=== PATIENT | male | born 1960 | race Caucasian/White ===

== ENCOUNTER → 2019-10-08 | Outpatient (CLI) | payer MEDICAID ==
[~2019-10-08] MED LIST: ACET-1600 PO; ACET-458 PO; ATOR40TA78 PO
[2019-10-08 11:54] LABS: BASOPHILS # (AUTO) 0.04 x10^3/uL (0-0.1); BASOPHILS % (AUTO) 1 % (0-1); EOSINOPHILS # (AUTO) 0.24 x10^3/uL (0-0.4); EOSINOPHILS % (AUTO) 3 % (1-7); LYMPHOCYTES # (AUTO) 2.02 x10^3/uL (1-3.4); LYMPHOCYTES % (AUTO) 28 % (22-44); MD NO; MEAN CORPUSCULAR HEMOGLOBIN 31.7 pg (27.5-34.5); MEAN CORPUSCULAR HGB CONC 33.7 g/dL (33.2-36.2); MEAN CORPUSCULAR VOLUME 94.1 fL (81-97); MEAN PLATELET VOLUME 7.6 fL (7.4-10.4); MONOCYTES # (AUTO) 0.44 x10^3/uL (0.2-0.8); MONOCYTES % (AUTO) 6 % (2-9); NEUTROPHILS # (AUTO) 4.58 x10^3/uL (1.8-6.8); NEUTROPHILS % (AUTO) 63 % (42-75); PLATELET COUNT 325 x10^3/uL (130-400); RED BLOOD COUNT 4.44 x10^6/uL (4.38-5.82); RED CELL DISTRIBUTION WIDTH 13.7 % (9.4-14.8)
[2019-10-08 12:05] LABS: INTERNATIONAL NORMALIZED RATIO 1.03 (0.93-1.1); PROTHROMBIN TIME 10.6 Seconds (9.6-11.5)
[2019-10-08 12:08] LABS: ANION GAP 8 mmol/L (5-15); CALCIUM 9.5 mg/dL (8.5-10.1); CHLORIDE 108 mmol/L (98-107)
[2019-10-08 12:13] LABS: ALANINE AMINOTRANSFERASE 29 U/L (12-78); ALKALINE PHOSPHATASE 57 U/L (45-117); BILIRUBIN,TOTAL 0.6 mg/dL (0.2-1.0); CREATININE 0.93 mg/dL (0.7-1.3); TOTAL PROTEIN 7.5 g/dL (6.4-8.2)
== END | disposition home or self-care (01) ==
LOC: STAR 10:44
PROVIDERS: ATTEND Orthopaedic Surgery
DX: Z01.818 Encounter for other preprocedural examination (principal); M16.11 Unilateral primary osteoarthritis, right hip; M25.551 Pain in right hip
CPT/HCPCS: 36415; 80053; 83036; 85025; 85610; 85730; 87081; 93005

== ENCOUNTER → 2019-10-15 | Outpatient (CLI) | payer MEDICAID | END | disposition home or self-care (01) | LOC: STAR 09:58 | PROVIDERS: ATTEND Anesthesiology | DX: Z01.812 Encounter for preprocedural laboratory examination (principal); Z20.828 Contact with and (suspected) exposure to other viral communicable diseases | CPT/HCPCS: 36415; 87635 ==

== ENCOUNTER 2019-10-20 06:33 | Day surgery (SDC) | payer MEDICAID ==
[~2019-10-20] VITALS: Ht 188 cm; Wt 102.1 kg
[2019-10-20] MEDS ORDERED: GABAPENTIN 300 MG CAPSULE PO STA (06:49)
[2019-10-20] MEDS ORDERED: ACETAMINOPHEN 500 MG TABLET PO STA (06:49)
[2019-10-20] MEDS ORDERED: LACTATED RINGERS 1,000 ML IV SCH (06:50)
[2019-10-20] MEDS ORDERED: MIDAZOLAM 1 MG/ML, 2ML ONE (06:54)
[2019-10-20] MEDS ORDERED: FENTANYL PF 250 MCG/5ML ONE (06:54)
[2019-10-20] MEDS ORDERED: TRANEXAMIC ACID 100 MG/ML, 10ML ONE ×2 (06:55→06:56)
[2019-10-20] MEDS ORDERED: KETOROLAC 60 MG/2 ML ONE (06:55)
[2019-10-20] MEDS ORDERED: ROPIvacaine/PF 0.5%, 20 ML ONE (06:55)
[2019-10-20] MEDS ORDERED: ROPIvacaine/PF 0.5%, 30 ML ONE (06:55)
[2019-10-20] MEDS ORDERED: PROPOFOL 10 MG/ML, 20ML ONE (06:55)
[2019-10-20] MEDS ORDERED: SODIUM CHLORIDE 0.9% 50 ML ONE (06:56)
[2019-10-20] MEDS ORDERED: VANCOMYCIN 1,000 MG ONE (06:56)
[2019-10-20] MEDS ORDERED: EPINEPHRINE 1 MG/ML, 1ML ONE (06:56)
[2019-10-20] MEDS ORDERED: CHLORHEXIDINE 15 ML UDC MM ONE (07:00)
[2019-10-20] MEDS ORDERED: ROCURONIUM 10MG/ML,5ML ONE (07:04)
[2019-10-20] MEDS ORDERED: ONDANSETRON 2MG/ML, 2ML ONE (07:05)
[2019-10-20] MEDS ORDERED: DEXAMETHASONE 4 MG/ML, 1ML ONE ×2 (07:05)
[2019-10-20] MEDS ORDERED: CEFAZOLIN 1,000 MG ONE ×2 (07:05)
[2019-10-20] MEDS ORDERED: NS + 20MEQ KCL 1,000 ML IV SCH (07:07)
[2019-10-20] MEDS ORDERED: MEPERIDINE/PF 25MG/0.5ML IVPush PRN (07:30)
[2019-10-20] MEDS ORDERED: BISACODYL 10 MG SUPP PR PRN (07:30)
[2019-10-20] MEDS ORDERED: ACETAMINOPHEN 325 MG TABLET PO PRN (07:30)
[2019-10-20] MEDS ORDERED: ONDANSETRON 2MG/ML, 2ML IV PRN (07:30)
[2019-10-20] MEDS ORDERED: ONDANSETRON 2MG/ML, 2ML IVPush PRN (07:30)
[2019-10-20] MEDS ORDERED: MAGNESIUM HYDROXIDE 8%, 30ML UDC PO PRN (07:30)
[2019-10-20] MEDS ORDERED: ZOLPIDEM 5MG TABLET PO PRN (07:30)
[2019-10-20] MEDS ORDERED: HYDROcodone/APAP 5/325 TABLET PO PRN (07:30)
[2019-10-20] MEDS ORDERED: ONDANSETRON 4 MG TABLET PO PRN (07:30)
[2019-10-20] MEDS ORDERED: SENNA/DOCUSATE TABLET PO PRN (07:30)
[2019-10-20] MEDS ORDERED: DIPHENHYDRAMINE 50 MG/ML, 1ML IVPush PRN (07:30)
[2019-10-20] MEDS ORDERED: DIPHENHYDRAMINE 50 MG CAPSULE PO PRN (07:30)
[2019-10-20] MEDS ORDERED: OXYcodone IR 5MG TABLET PO PRN (07:30)
[2019-10-20] MEDS ORDERED: ACETAMINOPHEN 650 MG/20.3 ML UDC PO PRN (07:30)
[2019-10-20] MEDS ORDERED: PROMETHAZINE 25 MG/ML, 1ML IVPush PRN (07:30)
[2019-10-20] MEDS ORDERED: LABETALOL 5MG/ML, 20ML IV PRN (07:30)
[2019-10-20] MEDS ORDERED: hydrALAzine 20 MG/ML, 1ML IV PRN (07:30)
[2019-10-20] MEDS ORDERED: OXYcodone 5 MG/5 ML ORAL.SOL UDC PO PRN (07:30)
[2019-10-20] MEDS ORDERED: FENTANYL PF 100 MCG/2ML ONE (08:43)
[2019-10-20] MEDS: FENTANYL PF 100 MCG/2ML IV PRN ×2 (08:45→09:00)
[2019-10-20] MEDS: DIAZEPAM 5 MG/ML, 2ML IVPush PRN ×2 (08:45→09:00)
[2019-10-20] MEDS ORDERED: DIAZEPAM 5 MG/ML, 2ML ONE (08:46)
[2019-10-20] MEDS ORDERED: OXYcodone 5 MG/5 ML ORAL.SOL UDC ONE (08:56)
[2019-10-20] MEDS ORDERED: DOCUSATE 100 MG CAPSULE PO SCH (09:00)
[2019-10-20] MEDS ORDERED: LABETALOL 5MG/ML, 20ML ONE (09:06)
[2019-10-20] MEDS ORDERED: HYDROmorphone 1 MG/ML, 1ML INJ ONE (09:07)
[2019-10-20] MEDS: HYDROmorphone 1 MG/ML, 1ML INJ IVPush PRN ×2 (09:10→09:40)
[2019-10-20] MEDS ORDERED: hydrALAzine 20 MG/ML, 1ML ONE (09:24)
[2019-10-20] MEDS ORDERED: METHOCARBAMOL 1,000 MG in DEXTROSE 5% 100 ML IV ONE (10:00)
[2019-10-20 12:48] VITALS: BP 123/64
[2019-10-20] MEDS ORDERED: CEFAZOLIN PMX 2GM/50ML 50 ML IVPB SCH (15:00)
[2019-10-20] MEDS ORDERED: OXYC5TAB3 PO (15:36)
[2019-10-20] MEDS ORDERED: TRAM-47 PO (15:39)
[2019-10-20] MEDS ORDERED: MELO7.5T31 PO ×2 (15:40→15:41)
[2019-10-20] MEDS ORDERED: ASPIRIN 81 MG TABLET EC PO SCH (18:00)
[2019-10-20] MEDS ORDERED: ATORVASTATIN 40 MG TABLET PO SCH (21:00)
[2019-10-21] MEDS ORDERED: DEXAMETHASONE 4 MG/ML, 1ML IVPush SCH (06:00)
== END 2019-10-20 16:09 | disposition home or self-care (01) ==
LOC: OUT 06:33 → 4NE 10:54 → 4EST 12:52 → OUT 16:09
PROVIDERS: ATTEND Orthopaedic Surgery
DX: T81.89XA Other complications of procedures, not elsewhere classified, initial encounter (principal); S73.101A Unspecified sprain of right hip, initial encounter; M16.11 Unilateral primary osteoarthritis, right hip; M25.551 Pain in right hip; I10 Essential (primary) hypertension; E78.5 Hyperlipidemia, unspecified; F17.210 Nicotine dependence, cigarettes, uncomplicated; X58.XXXA Exposure to other specified factors, initial encounter; Y93.89 Activity, other specified; Y92.89 Other specified places as the place of occurrence of the external cause; Y99.8 Other external cause status; Y82.8 Other medical devices associated with adverse incidents; Z98.890 Other specified postprocedural states; Z79.899 Other long term (current) drug therapy
CPT/HCPCS: 27132; 73501; 76000; 97110; 97161; 97165; C1713; C1776; J0171; J0690; J1100; J1170; J1885; J2250; J2405; J2704; J2795; J2800; J3010; J3360; J3370; J7120; G0378

== ENCOUNTER 2020-10-20 08:36 | Outpatient (CLI) | payer MEDICAID ==
[~2020-10-20 08:36] MED LIST changes: +MELO7.5T31 PO; +OXYC5TAB98 PO; +TRAM-47 PO
[2020-10-25] MEDS ORDERED: ASPI81TA45 PO (15:00)
[2020-10-25] MEDS ORDERED: OXYC1TAB12 PO (15:00)
[2020-10-25] MEDS ORDERED: LORA-446 PO (15:00)
[2020-10-25] MEDS ORDERED: CLOP75TA52 PO (15:00)
[2020-10-25] MEDS ORDERED: Toradol PO (15:00)
[2020-10-25] MEDS ORDERED: ATOR-2 PO (15:00)
[2020-10-25] MEDS ORDERED: HYDR-2214 PO (15:01)
== END 2020-10-20 23:59 | disposition home or self-care (01) ==
LOC: STAR 08:36
PROVIDERS: ATTEND Thoracic Surgery (Cardiothoracic Vascular Surgery)
DX: Z20.822 Contact with and (suspected) exposure to COVID-19 (principal)
CPT/HCPCS: U0003; U0005

== ENCOUNTER 2020-10-26 04:16 | Inpatient (IN) | payer MEDICAID ==
[2020-10-25 14:41] LABS: BASOPHILS % (AUTO) 2 % (0-1); EOSINOPHILS % (AUTO) 4 % (1-7); LYMPHOCYTES % (AUTO) 37 % (22-44); MEAN CORPUSCULAR HEMOGLOBIN 31.2 pg (27.5-34.5); MEAN CORPUSCULAR HGB CONC 33.6 g/dL (33.2-36.2); MEAN PLATELET VOLUME 7.9 fL (7.4-10.4); MONOCYTES % (AUTO) 7 % (2-9); NEUTROPHILS % (AUTO) 50 % (42-75); PLATELET COUNT 275 x10^3/uL (130-400); RED BLOOD COUNT 4.63 x10^6/uL (4.38-5.82); RED CELL DISTRIBUTION WIDTH 13.5 % (9.4-14.8)
[2020-10-25 14:52] LABS: ALBUMIN 4.2 g/dL (3.4-5.0); ANION GAP 5 mmol/L (5-15); CALCIUM 9.3 mg/dL (8.5-10.1); CHLORIDE 109 mmol/L (98-107)
[2020-10-25 14:55] LABS: ALANINE AMINOTRANSFERASE 32 U/L (12-78); ALKALINE PHOSPHATASE 52 U/L (45-117); BILIRUBIN,TOTAL 0.7 mg/dL (0.2-1.0); TOTAL PROTEIN 7.8 g/dL (6.4-8.2)
[2020-10-25 15:21] LABS: INTERNATIONAL NORMALIZED RATIO 1.03 (0.93-1.1)
[2020-10-25 15:21] LABS: MICROSCOPIC NOT IND
[~2020-10-26] VITALS: Ht 188 cm; Wt 106.8 kg
[~2020-10-26 04:16] MED LIST changes: +ASPI81TA45 PO; +ATOR-2 PO; +CLOP75TA52 PO; +HYDR-2214 PO; +LORA-446 PO; +OXYC1TAB12 PO; +Toradol PO
[2020-10-26] MEDS ORDERED: INSULIN LISPRO 100 UNITS/ML, PEN SQ-INSULIN ONE (04:30)
[2020-10-26] MEDS ORDERED: CHLORHEXIDINE 15 ML UDC MM PRN (04:30)
[2020-10-26 04:45] VITALS: BP_SYST 113; BP_SYST 127; BP_DIAS 76; BP_DIAS 78
[2020-10-26] MEDS ORDERED: METOPROLOL TARTRATE 25 MG TAB PO ONE (05:00)
[2020-10-26] MEDS ORDERED: DO NOT GIVE MC SCH (05:00)
[2020-10-26] MEDS ORDERED: DO NOT GIVE XX SCH (05:00)
[2020-10-26] MEDS ORDERED: MUPIROCIN OINT 2%, 15GM NAS SCH (06:00)
[2020-10-26] MEDS ORDERED: LORazepam 0.5MG TABLET PO ONE (06:00)
[2020-10-26] MEDS ORDERED: ALBUMIN HUMAN 5% 500 ML ONE (06:33)
[2020-10-26] MEDS ORDERED: PHENYLEPHRINE 10 MG/ML ONE (06:48)
[2020-10-26] MEDS ORDERED: PAPAVERINE 30 MG/ML, 2ML ONE (06:48)
[2020-10-26] MEDS ORDERED: MIDAZOLAM 10MG/2 ML ONE (06:48)
[2020-10-26] MEDS ORDERED: EPINEPHRINE 1 MG/ML, 1ML ONE (06:48)
[2020-10-26] MEDS ORDERED: PROPOFOL 10 MG/ML, 20ML ONE ×2 (06:48→09:50)
[2020-10-26] MEDS ORDERED: AMINOCAPROIC ACID 250 MG/ML, 20ML ONE ×2 (06:48)
[2020-10-26] MEDS ORDERED: ROCURONIUM 10MG/ML,5ML ONE ×3 (06:48→08:13)
[2020-10-26] MEDS ORDERED: FENTANYL PF 250 MCG/5ML ONE ×8 (06:48→09:48)
[2020-10-26] MEDS ORDERED: HEPARIN 1,000 UNITS/ML, 10ML ONE (06:48)
[2020-10-26] MEDS ORDERED: REGULAR INSULIN 100 UNITS in SODIUM CHLORIDE 0.9% 99 ML IV PRN ×2 (07:30→10:30)
[2020-10-26] MEDS ORDERED: MANNITOL PMX 20% 500 ML IVPB PRN (07:30)
[2020-10-26] MEDS ORDERED: POTASSIUM CHLORIDE 80 MEQ, SODIUM BICARBONATE 8.4% 10 MEQ, MAGNESIUM SULFATE 0.5 GM, LI... IV PRN (07:30)
[2020-10-26] MEDS ORDERED: DEXMEDETOMIDINE 200 MCG in SODIUM CHLORIDE 0.9% 48 ML IV PRN (07:30)
[2020-10-26] MEDS ORDERED: EPINEPHRINE 5 MG in SODIUM CHLORIDE 0.9% 245 ML IV PRN ×2 (07:30→10:30)
[2020-10-26] MEDS ORDERED: PHENYLEPHRINE 50 MG in SODIUM CHLORIDE 0.9% 245 ML IV PRN ×2 (07:30→10:30)
[2020-10-26] MEDS ORDERED: PAPAVERINE 30 MG/ML, 2ML IVPush ONE (08:26)
[2020-10-26] MEDS ORDERED: HEPARIN 1,000 UNITS/ML, 10ML IV ONE (08:27)
[2020-10-26] MEDS ORDERED: SODIUM CHLORIDE FLUSH 10ML SYR IVF SCH (09:00)
[2020-10-26] MEDS: KSCALE TO 4.5 IV SCH ×3 (10:30→22:30)
[2020-10-26] MEDS ORDERED: ONDANSETRON 2MG/ML, 2ML IVPush PRN (10:30)
[2020-10-26] MEDS ORDERED: SODIUM CHLORIDE 0.9% 1,000 ML IV SCH (10:30)
[2020-10-26] MEDS ORDERED: NITROGLYCERIN/D5W PMX 250 ML IV PRN (10:30)
[2020-10-26] MEDS ORDERED: DEXTROSE 50%, 50ML SYRINGE IVPush PRN (10:30)
[2020-10-26] MEDS ORDERED: FENTANYL PF 100 MCG/2ML IV PRN (10:30)
[2020-10-26] MEDS ORDERED: SODIUM BICARB 8.4%, 50ML SYRINGE IV PRN (10:30)
[2020-10-26] MEDS ORDERED: DEXTROSE 4 GM TAB.CHEW PO PRN (10:30)
[2020-10-26] MEDS ORDERED: MIDAZOLAM 1 MG/ML, 2ML IV PRN (10:30)
[2020-10-26] MEDS ORDERED: DOBUTAMINE 250 MG in SODIUM CHLORIDE 0.9% 230 ML IV PRN (10:30)
[2020-10-26] MEDS: ACETAMINOPHEN 500 MG TABLET PO SCH ×3 (10:30→23:43)
[2020-10-26] MEDS ORDERED: OXYcodone IR 5MG TABLET PO PRN (10:30)
[2020-10-26] MEDS ORDERED: LACTATED RINGERS 500 ML IV PRN (10:30)
[2020-10-26] MEDS: INSULIN LISPRO 100 UNITS/ML, PEN SQ-INSULIN SCH ×5 (10:30→23:52)
[2020-10-26] MEDS ORDERED: DEXMEDETOMIDINE 400 MCG in SODIUM CHLORIDE 0.9% 96 ML IV PRN (10:30)
[2020-10-26] MEDS ORDERED: VASOPRESSIN 20 UNIT in SODIUM CHLORIDE 0.9% 99 ML IV PRN (10:30)
[2020-10-26] MEDS ORDERED: GLUCAGON 1 MG IM PRN (10:30)
[2020-10-26] MEDS ORDERED: PROMETHAZINE 25 MG SUPP PR PRN (10:30)
[2020-10-26] MEDS ORDERED: INSULIN REGULAR 100 UNITS/ML, 3ML VIAL IVPush PRN (10:30)
[2020-10-26] MEDS ORDERED: ALBUMIN HUMAN 5% 500 ML IV PRN (10:30)
[2020-10-26] MEDS ORDERED: CALCIUM CHLORIDE 13.6 MEQ in SODIUM CHLORIDE 0.9% 100 ML IVPB PRN (10:30)
[2020-10-26] MEDS ORDERED: PROTAMINE SULFATE 10 MG/ML, 25ML ONE ×2 (10:33)
[2020-10-26] MEDS ORDERED: AMIODARONE 50 MG/ML, 3ML ONE ×2 (11:54→11:59)
[2020-10-26] MEDS ORDERED: hydrALAzine 20 MG/ML, 1ML ONE (12:03)
[2020-10-26] MEDS ORDERED: HYDROmorphone 1 MG/ML, 1ML INJ ONE (12:07)
[2020-10-26] MEDS ORDERED: HEPARIN 1,000 UNITS/ML, 30ML ONE (12:25)
[2020-10-26] MEDS ORDERED: LIDOCAINE-MPF 2% ,5ML ONE (12:25)
[2020-10-26] MEDS ORDERED: ALBUMIN HUMAN 25% 50 ML ONE (12:25)
[2020-10-26] MEDS ORDERED: SODIUM BICARBONATE 1 MEQ/ML, 50ML VIAL ONE (12:25)
[2020-10-26] MEDS ORDERED: CALCIUM CHLORIDE 10%, 10ML SYR ONE (12:25)
[2020-10-26] MEDS ORDERED: SODIUM BICARB 8.4%, 50ML SYRINGE ONE (12:25)
[2020-10-26] MEDS ORDERED: MAGNESIUM SULFATE PMX 2GM/50ML 50 ML ONE (12:26)
[2020-10-26 13:08] LABS: GLUCOSE BY BLOOD GAS ANALYZER 171 mg/dL (70-110); HEMOGLOBIN BY BLOOD GAS ANALYZ 13.8 g/dL (14.0-18.0); POTASSIUM BY BLOOD GAS ANALYZR 3.8 mmol/L (3.6-5.5)
[2020-10-26 13:25] LABS: INTERNATIONAL NORMALIZED RATIO 1.21 (0.93-1.1); PROTHROMBIN TIME 12.8 Seconds (9.6-11.5)
[2020-10-26] MEDS ORDERED: POTASSIUM CHLORIDE PMX 100 ML IV ONE (14:00)
[2020-10-26] MEDS: MAGNESIUM SULFATE 1 GM in SODIUM CHLORIDE 0.9% 100 ML IVPB SCH (16:00)
[2020-10-26] MEDS: OXYcodone IR 5MG TABLET PO PRN ×3 (17:00→23:45)
[2020-10-26] MEDS: morphine SULFATE 10 MG/ML, 1ML IVPush PRN ×2 (17:43→20:50)
[2020-10-26] MEDS: CEFUROXIME 1.5 GM in SODIUM CHLORIDE 0.9% 50 ML IVPB SCH (19:39)
[2020-10-26] MEDS: VANCOMYCIN 1,500 MG in SODIUM CHLORIDE 0.9% 250 ML IVPB SCH (19:39)
[2020-10-26] MEDS: SODIUM CHLORIDE FLUSH 10ML SYR IVF SCH (19:41)
[2020-10-26] MEDS: DOCUSATE 100 MG CAPSULE PO SCH (20:00)
[2020-10-26] MEDS: ATORVASTATIN 40 MG TABLET PO SCH (20:00)
[2020-10-26] MEDS: SENNA/DOCUSATE TABLET PO SCH (20:02)
[2020-10-26] MEDS: PROCHLORPERAZINE 5 MG/ML, 2ML IVPush PRN (20:49)
[2020-10-26] MEDS ORDERED: DIPHENHYDRAMINE 25 MG CAPSULE PO PRN (21:00)
[2020-10-26] MEDS: HYDROmorphone 1 MG/ML, 1ML INJ IV PRN (21:37)
[2020-10-27] MEDS: OXYcodone IR 5MG TABLET PO PRN ×5 (03:58→19:38)
[2020-10-27] MEDS: INSULIN LISPRO 100 UNITS/ML, PEN SQ-INSULIN SCH ×5 (04:07→22:34)
[2020-10-27 04:17] LABS: MEAN CORPUSCULAR HEMOGLOBIN 31.3 pg (27.5-34.5); MEAN CORPUSCULAR HGB CONC 33.5 g/dL (33.2-36.2); PLATELET COUNT 225 x10^3/uL (130-400); RED BLOOD COUNT 3.89 x10^6/uL (4.38-5.82); RED CELL DISTRIBUTION WIDTH 13.3 % (9.4-14.8)
[2020-10-27 04:22] LABS: ANION GAP 4 mmol/L (5-15); CHLORIDE 114 mmol/L (98-107); CREATININE 0.92 mg/dL (0.7-1.3)
[2020-10-27] MEDS: HYDROmorphone 1 MG/ML, 1ML INJ IV PRN ×4 (04:26→20:16)
[2020-10-27] MEDS: KSCALE TO 4.5 IV SCH (04:30)
[2020-10-27] MEDS: ACETAMINOPHEN 500 MG TABLET PO SCH ×4 (04:40→22:33)
[2020-10-27] MEDS: PROCHLORPERAZINE 5 MG/ML, 2ML IVPush PRN ×3 (04:40→13:30)
[2020-10-27] MEDS: MUPIROCIN OINT 2%, 15GM NAS SCH ×2 (05:04→18:13)
[2020-10-27 05:47] LABS: <PLATELET ESTIMATE> ADEQUATE; <PLT MORPHOLOGY> NORMAL PLT MORPH; <RBC MORPHOLOGY> NORMAL; BAND#(MANUAL) 1.13 x10^3/uL; BANDS%(MANUAL) 7 % (0-7); LYMPH#(MANUAL) 0.97 x10^3/uL (1-3.4); LYMPHS% (MANUAL) 6 % (22-44); MONOS#(MANUAL) 0.81 x10^3/uL (0.3-2.7); MONOS% (MANUAL) 5 % (2-9); SEG#(MANUAL) 13.28 x10^3/uL (1.8-6.8); SEGS% (MANUAL) 82 % (42-75)
[2020-10-27] MEDS: CEFUROXIME 1.5 GM in SODIUM CHLORIDE 0.9% 50 ML IVPB SCH (07:24)
[2020-10-27] MEDS ORDERED: VANCOMYCIN 1,500 MG in SODIUM CHLORIDE 0.9% 250 ML IV PRN (07:30)
[2020-10-27] MEDS ORDERED: CEFUROXIME 1.5 GM in SODIUM CHLORIDE 0.9% 50 ML IVPB PRN (07:30)
[2020-10-27] MEDS: VANCOMYCIN 1,500 MG in SODIUM CHLORIDE 0.9% 250 ML IVPB SCH (08:53)
[2020-10-27] MEDS: DOCUSATE 100 MG CAPSULE PO SCH ×2 (08:53→22:33)
[2020-10-27] MEDS: SENNA/DOCUSATE TABLET PO SCH ×2 (08:54→22:33)
[2020-10-27] MEDS: ASPIRIN 81 MG TABLET EC PO SCH (08:54)
[2020-10-27] MEDS: METOPROLOL TARTRATE 25 MG TAB PO/NG SCH ×2 (08:54→22:33)
[2020-10-27] MEDS: OMEPRAZOLE 20 MG CAPSULE.DR PO SCH (08:54)
[2020-10-27] MEDS: POLYETHYLENE GLYCOL 17 GM PACKET PO SCH (08:54)
[2020-10-27] MEDS: CLOPIDOGREL 75 MG TABLET PO SCH (08:54)
[2020-10-27] MEDS: CHLORHEXIDINE 15 ML UDC MM SCH ×2 (08:54→22:32)
[2020-10-27] MEDS: SODIUM CHLORIDE FLUSH 10ML SYR IVF SCH ×2 (09:15→22:32)
[2020-10-27] MEDS: LISINOPRIL 5 MG TABLET PO SCH (11:10)
[2020-10-27] MEDS: POTASSIUM CHLORIDE 10 MEQ TABLET.ER PO SCH (11:10)
[2020-10-27] MEDS: FUROSEMIDE 20 MG/2 ML IV SCH (11:10)
[2020-10-27] MEDS: LORazepam 2 MG/ML, 1ML IVPush PRN (11:11)
[2020-10-27] MEDS ORDERED: HYDROmorphone 2 MG/ML, 1ML ONE ×2 (13:35→20:08)
[2020-10-27 13:42] VITALS: BP 132/71
[2020-10-27] MEDS: MAGNESIUM SULFATE 1 GM in SODIUM CHLORIDE 0.9% 100 ML IVPB SCH (16:00)
[2020-10-27 19:42] VITALS: BP 115/67
[2020-10-27] MEDS ORDERED: KETOROLAC 30 MG/1 ML IVPush ONE (22:30)
[2020-10-27] MEDS: ATORVASTATIN 40 MG TABLET PO SCH (22:33)
[2020-10-27] MEDS: ZOLPIDEM 5MG TABLET PO PRN (22:47)
[2020-10-28] MEDS: LORazepam 2 MG/ML, 1ML IVPush PRN ×2 (01:25→08:33)
[2020-10-28] MEDS: OXYcodone IR 5MG TABLET PO PRN ×3 (01:26→08:33)
[2020-10-28 01:34] VITALS: BP 109/65
[2020-10-28] MEDS: ACETAMINOPHEN 500 MG TABLET PO SCH ×3 (04:11→16:37)
[2020-10-28] MEDS: MUPIROCIN OINT 2%, 15GM NAS SCH ×2 (04:15→19:30)
[2020-10-28 05:27] LABS: BASOPHILS % (AUTO) 0 % (0-1); EOSINOPHILS % (AUTO) 0 % (1-7); LYMPHOCYTES % (AUTO) 9 % (22-44); MEAN CORPUSCULAR HEMOGLOBIN 31.5 pg (27.5-34.5); MEAN CORPUSCULAR HGB CONC 33.8 g/dL (33.2-36.2); MEAN PLATELET VOLUME 8.3 fL (7.4-10.4); MONOCYTES % (AUTO) 6 % (2-9); NEUTROPHILS % (AUTO) 85 % (42-75); PLATELET COUNT 190 x10^3/uL (130-400); RED BLOOD COUNT 3.32 x10^6/uL (4.38-5.82); RED CELL DISTRIBUTION WIDTH 13.3 % (9.4-14.8)
[2020-10-28 05:36] LABS: ANION GAP 3 mmol/L (5-15); CALCIUM 8.6 mg/dL (8.5-10.1); CHLORIDE 106 mmol/L (98-107)
[2020-10-28 05:37] LABS: CREATININE 0.96 mg/dL (0.7-1.3)
[2020-10-28] MEDS: INSULIN LISPRO 100 UNITS/ML, PEN SQ-INSULIN SCH ×4 (07:00→21:00)
[2020-10-28 07:26] VITALS: BP 100/62
[2020-10-28] MEDS: GABAPENTIN 100 MG CAPSULE PO SCH ×3 (08:33→20:24)
[2020-10-28] MEDS: CLOPIDOGREL 75 MG TABLET PO SCH (08:38)
[2020-10-28] MEDS: LISINOPRIL 5 MG TABLET PO SCH (08:38)
[2020-10-28] MEDS: POTASSIUM CHLORIDE 10 MEQ TABLET.ER PO SCH (08:38)
[2020-10-28] MEDS: ASPIRIN 81 MG TABLET EC PO SCH (08:38)
[2020-10-28] MEDS: SENNA/DOCUSATE TABLET PO SCH ×2 (08:38→20:24)
[2020-10-28] MEDS: CHLORHEXIDINE 15 ML UDC MM SCH ×2 (08:38→20:23)
[2020-10-28] MEDS: SPIRONOLACTONE 25 MG TABLET PO SCH (08:38)
[2020-10-28] MEDS: OMEPRAZOLE 20 MG CAPSULE.DR PO SCH (08:38)
[2020-10-28] MEDS: POLYETHYLENE GLYCOL 17 GM PACKET PO SCH (08:39)
[2020-10-28] MEDS: FUROSEMIDE 20 MG/2 ML IV SCH (08:39)
[2020-10-28] MEDS: ENOXAPARIN 40 MG/0.4 ML SQ SCH (08:39)
[2020-10-28] MEDS: SODIUM CHLORIDE FLUSH 10ML SYR IVF SCH ×2 (08:39→20:23)
[2020-10-28] MEDS: DOCUSATE 100 MG CAPSULE PO SCH ×2 (08:40→20:24)
[2020-10-28] MEDS ORDERED: BISACODYL 10 MG SUPP PR PRN (10:30)
[2020-10-28] MEDS ORDERED: KETOROLAC 30 MG/1 ML IVPush PRN (11:30)
[2020-10-28 13:24] VITALS: BP 106/72
[2020-10-28 13:41] VITALS: BP 106/72
[2020-10-28] MEDS: AMIODARONE 450 MG in DEXTROSE 5% 241 ML IV PRN ×2 (13:58→22:25)
[2020-10-28] MEDS ORDERED: AMIODARONE 150 MG in DEXTROSE 5% 100 ML IV ONE (14:00)
[2020-10-28] MEDS ORDERED: FILTER 0.22 MICRON IV PRN (14:00)
[2020-10-28] MEDS ORDERED: HYDROmorphone 2 MG/ML, 1ML ONE ×2 (14:27→20:19)
[2020-10-28] MEDS: MAGNESIUM SULFATE 1 GM in SODIUM CHLORIDE 0.9% 100 ML IVPB SCH (16:37)
[2020-10-28 18:52] VITALS: BP 94/57
[2020-10-28] MEDS: CARVEDILOL 3.125 MG TABLET PO SCH (19:31)
[2020-10-28] MEDS: ATORVASTATIN 40 MG TABLET PO SCH (20:24)
[2020-10-28] MEDS: HYDROmorphone 1 MG/ML, 1ML INJ IV PRN (20:26)
[2020-10-29] VITALS (7 sets, daily range): BP systolic 105–121; BP diastolic 65–79
[2020-10-29] MEDS ORDERED: HYDROmorphone 2 MG/ML, 1ML ONE ×3 (00:17→08:01)
[2020-10-29] MEDS: ACETAMINOPHEN 500 MG TABLET PO SCH ×5 (00:23→21:49)
[2020-10-29] MEDS: HYDROmorphone 1 MG/ML, 1ML INJ IV PRN ×3 (00:23→08:04)
[2020-10-29] MEDS: ZOLPIDEM 5MG TABLET PO PRN ×2 (00:23→21:49)
[2020-10-29] MEDS: MUPIROCIN OINT 2%, 15GM NAS SCH ×2 (05:22→17:04)
[2020-10-29] MEDS: CARVEDILOL 3.125 MG TABLET PO SCH ×2 (05:22→17:04)
[2020-10-29 05:34] LABS: BASOPHILS % (AUTO) 0 % (0-1); EOSINOPHILS % (AUTO) 2 % (1-7); LYMPHOCYTES % (AUTO) 9 % (22-44); MEAN CORPUSCULAR HGB CONC 34.5 g/dL (33.2-36.2); MEAN PLATELET VOLUME 8.3 fL (7.4-10.4); MONOCYTES % (AUTO) 7 % (2-9); NEUTROPHILS % (AUTO) 82 % (42-75); PLATELET COUNT 178 x10^3/uL (130-400); RED BLOOD COUNT 3.24 x10^6/uL (4.38-5.82); RED CELL DISTRIBUTION WIDTH 13.4 % (9.4-14.8)
[2020-10-29 05:40] LABS: CHLORIDE 106 mmol/L (98-107)
[2020-10-29 05:52] LABS: ANION GAP 5 mmol/L (5-15); CALCIUM 8.5 mg/dL (8.5-10.1); CREATININE 0.93 mg/dL (0.7-1.3)
[2020-10-29] MEDS: INSULIN LISPRO 100 UNITS/ML, PEN SQ-INSULIN SCH ×3 (07:32→16:00)
[2020-10-29] MEDS: SENNA/DOCUSATE TABLET PO SCH ×2 (08:07→21:00)
[2020-10-29] MEDS: POLYETHYLENE GLYCOL 17 GM PACKET PO SCH (08:07)
[2020-10-29] MEDS: SODIUM CHLORIDE FLUSH 10ML SYR IVF SCH ×2 (08:07→21:30)
[2020-10-29] MEDS: ASPIRIN 81 MG TABLET EC PO SCH (08:07)
[2020-10-29] MEDS: GABAPENTIN 100 MG CAPSULE PO SCH ×3 (08:07→21:48)
[2020-10-29] MEDS: OMEPRAZOLE 20 MG CAPSULE.DR PO SCH (08:07)
[2020-10-29] MEDS: SPIRONOLACTONE 25 MG TABLET PO SCH (08:08)
[2020-10-29] MEDS: LISINOPRIL 5 MG TABLET PO SCH (08:08)
[2020-10-29] MEDS: CLOPIDOGREL 75 MG TABLET PO SCH (08:08)
[2020-10-29] MEDS: ENOXAPARIN 40 MG/0.4 ML SQ SCH (08:08)
[2020-10-29] MEDS: DOCUSATE 100 MG CAPSULE PO SCH ×2 (08:08→21:00)
[2020-10-29] MEDS: AMIODARONE 200 MG TABLET PO SCH ×2 (08:33→21:48)
[2020-10-29] MEDS: FUROSEMIDE 40 MG/4 ML IV SCH ×2 (08:34→19:27)
[2020-10-29] MEDS: LORazepam 2 MG/ML, 1ML IVPush PRN (08:39)
[2020-10-29] MEDS: POTASSIUM CHLORIDE 10 MEQ TABLET.ER PO SCH ×2 (09:44→21:49)
[2020-10-29] MEDS: METHOCARBAMOL 500 MG TABLET PO PRN ×3 (10:35→19:28)
[2020-10-29] MEDS: OXYcodone IR 5MG TABLET PO PRN ×4 (11:08→21:50)
[2020-10-29] MEDS: ATORVASTATIN 40 MG TABLET PO SCH (21:49)
[2020-10-30] MEDS: ACETAMINOPHEN 500 MG TABLET PO SCH ×2 (03:09→10:43)
[2020-10-30] MEDS: OXYcodone IR 5MG TABLET PO PRN (03:11)
[2020-10-30] MEDS: LORazepam 2 MG/ML, 1ML IVPush PRN (03:11)
[2020-10-30 03:20] VITALS: BP 108/68
[2020-10-30] MEDS: CARVEDILOL 3.125 MG TABLET PO SCH (05:58)
[2020-10-30] MEDS: MUPIROCIN OINT 2%, 15GM NAS SCH (05:59)
[2020-10-30 06:27] LABS: ANION GAP 6 mmol/L (5-15); CALCIUM 8.3 mg/dL (8.5-10.1); CHLORIDE 106 mmol/L (98-107)
[2020-10-30 06:28] LABS: CREATININE 0.91 mg/dL (0.7-1.3)
[2020-10-30 06:40] LABS: BASOPHILS % (AUTO) 1 % (0-1); EOSINOPHILS % (AUTO) 4 % (1-7); LYMPHOCYTES % (AUTO) 11 % (22-44); MEAN CORPUSCULAR HEMOGLOBIN 31.5 pg (27.5-34.5); MEAN PLATELET VOLUME 8.5 fL (7.4-10.4); MONOCYTES % (AUTO) 10 % (2-9); NEUTROPHILS % (AUTO) 74 % (42-75); PLATELET COUNT 225 x10^3/uL (130-400); RED CELL DISTRIBUTION WIDTH 13.2 % (9.4-14.8)
[2020-10-30 07:30] VITALS: BP 124/79
[2020-10-30] MEDS ORDERED: FUROSEMIDE 40 MG/4 ML IV SCH (07:30)
[2020-10-30] MEDS: ASPIRIN 81 MG TABLET EC PO SCH (08:43)
[2020-10-30] MEDS: SPIRONOLACTONE 25 MG TABLET PO SCH (08:43)
[2020-10-30] MEDS: SENNA/DOCUSATE TABLET PO SCH (08:44)
[2020-10-30] MEDS: SODIUM CHLORIDE FLUSH 10ML SYR IVF SCH (08:45)
[2020-10-30] MEDS: POTASSIUM CHLORIDE 10 MEQ TABLET.ER PO SCH (08:45)
[2020-10-30] MEDS: AMIODARONE 200 MG TABLET PO SCH (08:46)
[2020-10-30] MEDS: GABAPENTIN 100 MG CAPSULE PO SCH (08:46)
[2020-10-30] MEDS: CLOPIDOGREL 75 MG TABLET PO SCH (08:47)
[2020-10-30] MEDS: LISINOPRIL 5 MG TABLET PO SCH (08:47)
[2020-10-30] MEDS: OMEPRAZOLE 20 MG CAPSULE.DR PO SCH (08:47)
[2020-10-30] MEDS: ENOXAPARIN 40 MG/0.4 ML SQ SCH (08:55)
[2020-10-30] MEDS: POLYETHYLENE GLYCOL 17 GM PACKET PO SCH (09:00)
[2020-10-30] MEDS: DOCUSATE 100 MG CAPSULE PO SCH (09:00)
[2020-10-30] MEDS ORDERED: AMIO200T42 PO (10:03)
[2020-10-30] MEDS ORDERED: FURO40TA6 PO (10:03)
[2020-10-30] MEDS ORDERED: ASPI81TA45 PO (10:03)
[2020-10-30] MEDS ORDERED: OXYC-296 PO ×3 (10:03→10:06)
[2020-10-30] MEDS ORDERED: CLOP75TA PO (10:03)
[2020-10-30] MEDS ORDERED: GABA-826 PO (10:03)
[2020-10-30] MEDS ORDERED: METH-639 PO (10:03)
[2020-10-30] MEDS ORDERED: CARV3.1212 PO (10:03)
[2020-10-30] MEDS ORDERED: LISI5TAB7 PO (10:03)
[2020-10-30] MEDS ORDERED: SPIR25TA PO (10:03)
[2020-10-30] MEDS ORDERED: POTA10TA5 PO (10:03)
== END 2020-10-30 11:05 | disposition home or self-care (01) | DRG 236 ==
LOC: 5SO 04:16 → CCU 08:28 → 5SO 10-27 13:35
PROVIDERS: ADMIT Thoracic Surgery (Cardiothoracic Vascular Surgery); ATTEND Hospitalist
PROC: 02100Z8 Bypass Coronary Artery, One Artery from Right Internal Mammary, Open Approach (ICD-10-PCS; 2020-10-26)
PROC: 5A1221Z Performance of Cardiac Output, Continuous (ICD-10-PCS; 2020-10-26)
PROC: 3E080GC Introduction of Other Therapeutic Substance into Heart, Open Approach (ICD-10-PCS; 2020-10-26)
PROC: B24CZZ4 Ultrasonography of Pericardium, Transesophageal (ICD-10-PCS; 2020-10-26)
PROC: 02110Z9 Bypass Coronary Artery, Two Arteries from Left Internal Mammary, Open Approach (ICD-10-PCS; principal; 2020-10-26 07:30)
DX: I25.119 Atherosclerotic heart disease of native coronary artery with unspecified angina pectoris (principal); J44.9 Chronic obstructive pulmonary disease, unspecified; I10 Essential (primary) hypertension; E78.5 Hyperlipidemia, unspecified; I48.91 Unspecified atrial fibrillation; M54.9 Dorsalgia, unspecified; Z72.0 Tobacco use
CPT/HCPCS: 36415; 36600; J3490; S0017; 71045; 71046; 80048; 80053; 81003; 82330; 82800; 82803; 82810; 82947; 82962; 83036; 83735; 84132; 84295; 85014; 85018; 85025; 85049; 85347; 85610; 85730; 86850; 86900; 86923; 87081; 93005; 93312; 93321; 93325; 93880; 93970; 94002; 94150; G0378; J0171; J0697; J1170; J1644; J1650; J1885; J1940; J2250; J2704; J2720; J3010; J3370; J3475; J3480; J7060; P9045; P9047; C1760; J0282; J0360; J0780; J1815; J2060; J2270; J2370; J2440; J7050